=== PATIENT | female | born 2000 | race Caucasian/White ===

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

== ENCOUNTER 2020-05-06 18:43 | Observation (INO) ==
[2020-05-06] MEDS ORDERED: Acetaminophen 325 MG TABLET PO ONE (19:22)
[2020-05-06 19:57] LABS: Bilirubin,Urine Small (Negative); Blood,Urine Negative (Negative); Clarity,Urine Turbid (Clear); Color,Urine Yellow (Yellow); Glucose,Urine (UA) Normal (Normal); Ketones,Urine 40 mg/dL (Negative); Leukocyte Esterase,Urine Trace (Negative); Nitrite,Urine Negative (Negative); Protein,Urine 30 mg/dL (Neg-Trace); Specific Gravity,Urine >= 1.030 (1.010-1.025); Urobilinogen,Urine Normal (Normal)
[2020-05-06 20:01] LABS: Squamous Epithelial Cell,Urine Moderate per hpf (None-Few)
[2020-05-06 20:02] LABS: Bacteria,Urine Many per hpf (None-Few); Transitional Epi Cells,Urine Few per hpf (None-Few)
== END 2020-05-06 19:46 | disposition other institution (70) ==
LOC: 1NENULAB
PROVIDERS: ADMIT Registered Nurse; ATTEND Registered Nurse

== ENCOUNTER 2020-05-25 08:25 | Inpatient (IN) ==
[2020-05-25] MEDS ORDERED: Famotidine 20 MG/2 ML VIAL IVP PRN (08:35)
[2020-05-25] MEDS ORDERED: Naloxone 0.4 MG/ML INJ IVP PRN (08:35)
[2020-05-25] MEDS ORDERED: Ondansetron 4 MG/2 ML VIAL IVP PRN (08:35)
[2020-05-25] MEDS ORDERED: Metoclopramide 10 MG/2 ML VIAL IVP PRN (08:35)
[2020-05-25] MEDS ORDERED: EPHEDrine 50 MG/ML VIAL IVP PRN (09:47)
[2020-05-25] MEDS ORDERED: Oxytocin 20 units/ LR 1000 mL 20 UNIT/1,000 ML BAG IVC SCH ×2 (09:51→19:50)
[2020-05-25 09:52] LABS: Basophils % 0.2 %; Eosinophils # 0.1 K/mcL (0.0-0.6); Eosinophils % 0.6 %; Hematocrit 34.4 % (35.3-44.9); Hemoglobin 10.8 g/dL (11.5-15.4); Immature Granulocytes % 0.3 % (0-4); Lymphocytes # 2.2 K/mcL (0.6-4.6); Lymphocytes % 24.7 %; Mean Corpuscular HGB Conc 31.4 g/dL (31.6-35.5); Mean Corpuscular Hemoglobin 25.5 pg (28.0-33.3); Mean Corpuscular Volume 81.3 fL (83.0-100.0); Mean Platelet Volume 10.6 fL (9.4-12.4); Monocytes # 0.7 K/mcL (0.0-1.3); Monocytes % 7.8 %; Neutrophils # 5.9 K/mcL (1.6-8.9); Platelet Count 188 K/mcL (140-400); Red Blood Count 4.23 M/mcL (3.82-4.97); Red Cell Distribution Width 17.7 % (11.5-14.5); Segmented Neutrophils % 66.4 %
[2020-05-25 09:57] LABS: Amphetamine Screen,Urine Negative ng/mL (Cutoff=1000); Barbiturate Screen,Urine Negative ng/mL (Cutoff=200); Benzodiazepines Screen,Urine Negative ng/mL (Cutoff=200); Cannabinoid Screen,Urine Negative ng/mL (Cutoff = 50); Cocaine Screen,Urine Negative ng/mL (Cutoff= 300); Opiate Screen,Urine Negative ng/mL (Cutoff=300); Phencyclidine Screen,Urine Negative ng/mL (Cutoff=25)
[2020-05-25] MEDS: Ringers Solution, Lactated 1,000 ML IVC SCH ×2 (09:58→15:32)
[2020-05-25] MEDS ORDERED: Epidural Premix (fent/bupiv) 110 ML EP SCH (10:00)
[2020-05-25] MEDS ORDERED: Acetaminophen 325 MG TABLET PO PRN (19:50)
[2020-05-25] MEDS ORDERED: Benzocaine/Menthol 56 GM AEROSOL SPRAY TP PRN (19:50)
[2020-05-26] MEDS: Ibuprofen 600 MG TABLET PO PRN ×2 (04:19→11:45)
[2020-05-26] MEDS ORDERED: Prenatal Vit/FA 1 EACH TABLET PO SCH (09:00)
[2020-05-26 16:58] VITALS: BP 123/73
== END 2020-05-26 18:19 | disposition home or self-care (01) | DRG 560 ==
LOC: 1NENULAB 08:25 → 1NENUOBS 20:00
PROVIDERS: ADMIT Registered Nurse; ATTEND Registered Nurse